=== PATIENT | female | born 1955 | race Caucasian/White ===

== ENCOUNTER 2019-03-10 11:21 | Emergency (ER) | payer OTHER, MEDICAID, SELFPAY ==
[2019-03-10 11:30] VITALS: BP 138/86; PULSE 64; RESP 18; TEMP 36.7; O2SAT 100
--- NOTE | 2019-03-10 12:10 | ED.GIBLEED ---
HPI - GI Bleed General Chief complaint: GI Bleed Stated complaint: blood in stool past colon cancer PT 7 yrs ago Time Seen by Provider: 03/10/19 11:42 Source: patient Mode of arrival: Ambulatory Limitations: no limitations History of Present Illness HPI Narrative: The patient is 63-year-old female with history of anal cancer 7 years ago she did with 40 for his rounds of radiation and chemotherapy presenting today with bright red blood per rectum. She says that she has had a few episodes over the past couple of weeks. She says it's just during the initial bowel movement. She denies any abdominal pain nausea or vomiting. She continues to smoke daily and drink alcohol. Related Data Allergies Allergy/AdvReac Type Severity Reaction Status Date / Time Iodinated Contrast Media Allergy Severe Anaphylaxis Verified 03/10/19 11:39 codeine Allergy Verified 03/10/19 11:39 oxycodone Allergy Verified 03/10/19 11:39 Review of Systems Review of Systems Narrative: GENERAL: Denies chills, fatigue, malaise, fever, sweats, travel HEENT: Denies sinus pain, ear pain, sore throat, difficulty swallowing, neck pain RESPIRATORY: Denies dyspnea, cough, wheezing, hemoptysis, sputum. CARDIOVASCULAR: Denies chest pain, palpitations, orthopnea, edema GASTROINTESTINAL: See HPI : Denies dysuria, frequency, incontinence, hematuria, urinary retention, flank pain. MUSCULOSKELETAL: Denies weakness, joint pain, or bony pain SKIN: No rash, no erythema, no pruritus NEUROLOGIC: Denies weakness, dizziness, headache, numbness, change in speech, confusion PSYCHIATRIC: No concerning psychosocial issues. 12 point review of systems is negative except for those stated above and HPI Patient History Medical History Rectal cancer (Acute) Social History Smoking Status: Current every day smoker Smoking Status: Current every day smoker alcohol intake frequency: 3 or more drinks per day Alcohol type: hard liquor Substance Use Type: does not use Exam Initial Vital Signs Initial Vital Signs: Vital Signs Temperature 98.1 F 03/10/19 11:30 Pulse Rate 64 03/10/19 11:30 Respiratory Rate 18 03/10/19 11:30 Blood Pressure 138/86 03/10/19 11:30 Pulse Oximetry 100 03/10/19 11:30 GENERAL: Well-appearing, well-nourished and in no acute distress. HEENT: Head atraumatic,EOMI, pupils reactive, face symmetric CARDIOVASCULAR: Regular rate and rhythm without murmurs, rubs or gallops. RESPIRATORY: Breath sounds equal bilaterally, no wheezes rales or rhonchi. ABDOMEN: Soft, nontender. Normoactive bowel sounds all 4 quadrants. No guarding or rebound. RECTAL: No gross blood no hemorrhoid patient did not tolerate exam very well. Sphincter was small : No CVA tenderness EXTREMITIES: Normal range of motion, no clubbing or edema. Neurovascularly intact NEUROLOGICAL: Alert and oriented x4.Normal gait and speech. Cranial nerves II through XII grossly intact. SKIN: Warm, dry, no laceration, no petechiae, no rashes or lesions. Course Orders Ordered: ED Orders 03/10/19 11:41 EKG-12 Lead Stat 03/10/19 11:57 Complete Blood Count AUTO DIFF Stat Comprehensive Metabolic Panel Stat Partial Thromboplastin Time Stat Prothrombin Time INR Stat Type and Screen Stat 03/10/19 12:09 CT abdomen pelvis w con Stat Discontinued Medications Diphenhydramine HCl (Benadryl) 25 mg IV NOW ONE Stop: 03/10/19 12:10 Last Admin: 03/10/19 13:56 Dose: 25 mg Documented by: ASHLEY Methylprednisolone (Solu-Medrol 125 Mg Vial) 125 mg IV NOW ONE Stop: 03/10/19 12:10 Last Admin: 03/10/19 13:56 Dose: 125 mg Documented by: ASHLEY Vital Signs Vital signs: Vital Signs - 8 hr 03/10/19 11:30 03/10/19 12:30 03/10/19 14:20 Temperature 98.1 F Pulse Rate 64 69 65 Respiratory Rate 18 Blood Pressure 138/86 Blood Pressure [Right Arm] 155/98 H 158/98 H Pulse Oximetry 100 100 100 03/10/19 15:54 Temperature Pulse Rate 68 Respiratory Rate 16 Blood Pressure 138/74 Blood Pressure [Right Arm] Pulse Oximetry 98 MDM - GI Bleed Lab Data Attestation: I reviewed the patient's lab results. Result diagrams: 03/10/19 11:57 03/10/19 11:57 Labs: Lab Results 03/10/19 03/10/19 03/10/19 Range/Units 11:57 11:57 11:57 WBC 5.6 (4.5-11.0) X10^3/uL RBC 5.12 (4.0-5.2) X10^6/uL Hgb 16.7 H (12.0-16.0) g/dL Hct 46.9 H (36-46) % MCV 91.6 (80-100) fL MCH 32.5 (26-34) PG MCHC 35.5 (30-36) % RDW 13.7 (11.6-14.8) % Plt Count 266 (150-400) X10^3/uL Neut % (Auto) 63.5 (50-75) % Lymph % (Auto) 25.3 (25-40) % [place] % (Auto) 7.9 (3-14) % Eos % (Auto) 2.4 (2-4) % Baso % (Auto) 0.9 (0-2) % Neut # (Auto) 3600 (7660-7475) /uL Lymph # (Auto) 1400 (8208-0066) /uL [place] # (Auto) 400 (0-900) /uL Eos # (Auto) 100 (0-450) /uL Baso # (Auto) 100 (0-100) /uL PT 10.8 (10.1-12.7) SECONDS INR 0.9 (0.9-1.3) APTT 34 (26.4-36.2) SECONDS Sodium 138 (137-145) mmol/L Potassium 4.8 (3.4-5.1) mmol/L Chloride 103 (98-107) mmol/L Carbon Dioxide 27 (22-32) mmol/L BUN 13 (7-17) mg/dL Creatinine 0.80 (0.52-1.04) mg/dL Estimated GFR > 60.0 (>60) mL/min BUN/Creatinine Ratio 16.3 (6-22) Glucose 104 (80-110) mg/dL Calcium 9.9 (8.4-10.2) mg/dL Total Bilirubin 0.8 (0.2-1.3) mg/dL AST 46 H (14-36) IU/L ALT 56 H (<35) IU/L Alkaline Phosphatase 86 (38-126) U/L Total Protein 8.1 (6.3-8.2) g/dL Albumin 4.8 (3.5-5.0) g/dL Globulin 3.3 (1.7-4.1) g/dL Albumin/Globulin Ratio 1.5 (1.0-2.8) Blood Type Antibody Screen 03/10/19 Range/Units 11:57 WBC (4.5-11.0) X10^3/uL RBC (4.0-5.2) X10^6/uL Hgb (12.0-16.0) g/dL Hct (36-46) % MCV (80-100) fL MCH (26-34) PG MCHC (30-36) % RDW (11.6-14.8) % Plt Count (150-400) X10^3/uL Neut % (Auto) (50-75) % Lymph % (Auto) (25-40) % [place] % (Auto) (3-14) % Eos % (Auto) (2-4) % Baso % (Auto) (0-2) % Neut # (Auto) (1479-6240) /uL Lymph # (Auto) (7933-4279) /uL [place] # (Auto) (0-900) /uL Eos # (Auto) (0-450) /uL Baso # (Auto) (0-100) /uL PT (10.1-12.7) SECONDS INR (0.9-1.3) APTT (26.4-36.2) SECONDS Sodium (137-145) mmol/L Potassium (3.4-5.1) mmol/L Chloride (98-107) mmol/L Carbon Dioxide (22-32) mmol/L BUN (7-17) mg/dL Creatinine (0.52-1.04) mg/dL Estimated GFR (>60) mL/min BUN/Creatinine Ratio (6-22) Glucose (80-110) mg/dL Calcium (8.4-10.2) mg/dL Total Bilirubin (0.2-1.3) mg/dL AST (14-36) IU/L ALT (<35) IU/L Alkaline Phosphatase (38-126) U/L Total Protein (6.3-8.2) g/dL Albumin (3.5-5.0) g/dL Globulin (1.7-4.1) g/dL Albumin/Globulin Ratio (1.0-2.8) Blood Type O Positive Antibody Screen Negative Urine Dip Bedside Urine Glucose Negative Bedside Urine Bilirubin - Negative Bedside Urine Ketone - Negative Urine Specific [place] 1.010 Bedside Urine Occult Blood - Negative Bedside Urine pH 6.0 Bedside Urine Protein - Negative Bedside Urine Urobilinogen - Negative Bedside Urine Nitrite - Negative Bedside Urine Leukocytes - Negative Esterase Imaging Data CT scan - abdomen/pelvis: Radiologist's Impression: PROCEDURE: CT ABDOMEN PELVIS W CON INDICATIONS: hx of rectal cancer now GI bleed TECHNIQUE: After the administration of intravenous contrast, 5 mm thick sections acquired from the diaphragm to the symphysis. 5 mm coronal and sagittal reformats were acquired. For radiation dose reduction, the following was used: automated exposure control, adjustment of mA and/or kV according to patient size. COMPARISON: None. FINDINGS: Image quality: Excellent. ABDOMEN: Lung bases: Lung bases are clear. Heart size is normal. Solid organs: Liver is normal in size and enhancement. Gallbladder appears normal except for presence of small and moderate sized calcified gallstones within the gallbladder lumen. Biliary system is non dilated. Pancreas enhances normally. Spleen is normal in size and enhancement. No adrenal nodules. Kidneys demonstrate normal size and enhancement, without hydronephrosis. Peritoneum and bowel: Bowel loops demonstrate normal wall thickness and caliber. No free fluid or air. Nodes and vessels: No retroperitoneal or mesenteric adenopathy by size criteria. Aorta and inferior vena cava are normal in size. Miscellaneous: No ventral hernias. PELVIS: Genitourinary: Bladder wall thickness is normal. Miscellaneous: No inguinal hernias or adenopathy. Bones: No suspicious bony lesions. No vertebral body compression fractures. IMPRESSION: Source of GI bleeding is not found. Incidental note is made of several small and moderate size gallstones layering dependently within the gallbladder lumen but without associated biliary obstruction or evidence of acute cholecystitis. Dictated by: Tyrell Daly M.D. on 03/10/2019 at 14:28 ECG Data Attestation: I personally reviewed and interpreted this ECG as follows: Prior ECG tracings: not available for review Interpretation: Normal sinus rhythm rate 63 p.r. interval 196 QRS [address] elevation depression or T-wave inversion of priors to compare MDM Narrative Medical decision making narrative: Patient shows no sign acute GI bleeding or recurrence at this time. She is hemodynamically stable on actually has elevated hemoglobin and hematocrit. However I do recommend colonoscopy. She states that she was told that she might not be able to ever have colonoscopy at again is due to the amount of radiation she has had. She was seen is in [place] but she doesn't know the doctor's and she is not sure of the facility. Have called and spoken with surgery Dr. Tate, who evaluates patient in the ED. At this time agrees with outpatient follow-up. Discharge Plan Departure Patient Disposition: Home Clinical Impression: Rectal bleeding Discharge Date/Time: 03/10/19 15:55 Instructions: Gastrointestinal Bleeding Activity Restrictions/Additional Instructions: *You have been diagnosed with rectal bleeding *What to do: It is recommended that you follow-up with GI and or surgery for possible colonoscopy. *Continue to take medications as directed *Follow up with your primary care provider in 2-3 days *Return to ER if you should have increasing bloody stools abdominal pain persistent vomiting or any new, worsening or concerning symptoms Referrals: Tara Tate MD [Physician] -
[2019-03-10 12:14] LABS: INR 0.9 (0.9-1.3); Prothrombin Time 10.8 SECONDS (10.1-12.7)
[2019-03-10 12:17] LABS: PTT Partial Thromboplastin Tim 34 SECONDS (26.4-36.2)
[2019-03-10 12:18] LABS: Alanine Aminotransferase 56 IU/L (<35); Albumin 4.8 g/dL (3.5-5.0); Albumin Globulin Ratio 1.5 (1.0-2.8); Alkaline Phosphatase 86 U/L (38-126); Aspartate Aminotransferase 46 IU/L (14-36); BUN Creatinine Ratio 16.3 (6-22); Bilirubin Total 0.8 mg/dL (0.2-1.3); Blood Urea Nitrogen 13 mg/dL (7-17); Calcium 9.9 mg/dL (8.4-10.2); Carbon Dioxide 27 mmol/L (22-32); Chloride 103 mmol/L (98-107); Estimated Glomerular Filt Rate > 60.0 mL/min (>60); Globulin 3.3 g/dL (1.7-4.1); Glucose 104 mg/dL (80-110); HEMOLYSIS < 15 (0-50); Potassium 4.8 mmol/L (3.4-5.1); Sodium 138 mmol/L (137-145); Total Protein 8.1 g/dL (6.3-8.2)
[2019-03-10 12:29] LABS: Add Manual Diff / Slide Review NO; Basophils Absolute Auto 100 /uL (0-100); Basophils Percent Auto 0.9 % (0-2); Eosinophils Absolute Auto 100 /uL (0-450); Eosinophils Percent Auto 2.4 % (2-4); Hematocrit 46.9 % (36-46); Hemoglobin 16.7 g/dL (12.0-16.0); Lymphocytes Absolute Auto 1400 /uL (1100-4500); Lymphocytes Percent Auto 25.3 % (25-40); Mean Corpuscular HGB Conc 35.5 % (30-36); Mean Corpuscular Hemoglobin 32.5 PG (26-34); Mean Corpuscular Volume 91.6 fL (80-100); Monocytes Absolute Auto 400 /uL (0-900); Monocytes Percent Auto 7.9 % (3-14); Neutrophils Absolute Auto 3600 /uL (1500-7000); Neutrophils Percent Auto 63.5 % (50-75); Platelet Count 266 X10^3/uL (150-400); Red Blood Cell Count 5.12 X10^6/uL (4.0-5.2); Red Cell Distribution Width 13.7 % (11.6-14.8); White Blood Cell Count 5.6 X10^3/uL (4.5-11.0)
[2019-03-10 12:30] VITALS: BP 155/98; PULSE 69; O2SAT 100
[2019-03-10] MEDS: methylPREDNISolone 125 MG/2 ML VIAL IV (13:56)
[2019-03-10] MEDS: diphenhydrAMINE 50 MG/ML VIAL 25 MG IV (13:56)
--- NOTE | 2019-03-10 14:01 | PC.NURSE ---
PO contrast started at 1230
[2019-03-10 14:20] VITALS: BP 158/98; PULSE 65; O2SAT 100
[2019-03-10 15:54] VITALS: BP 138/74; PULSE 68; RESP 16; O2SAT 98
--- NOTE | 2019-03-10 16:04 | P.CONS_ITS ---
History of Present Illness Consult details Date Patient Seen: 03/10/19 Time Patient Seen: 16:04 Chief complaint: blood in stool past colon cancer PT 7 yrs ago Reason for consult: rectal bleeding, history of anal cancer Requesting provider: Winnie Zambrano Narrative: This is a 63-year-old woman with h/o of anal cancer 7 years ago for which she was treated with radiation and chemotherapy without surgery. She says she last had a colonoscopy some time before the anal cancer treatment. She came into the ER today with c/o bright red blood per rectum. She says that she has had a few episodes over the past couple of weeks. She says it's just during the bowel movements. She says it is not as much blood as when she had her cancer. She denies significant rectal pain, although she refuses a rectal exam due to fear of pain. She denies any abdominal pain nausea or vomiting. She continues to smoke daily and drink alcohol. ROS: GENERAL: Denies chills, fatigue, malaise, fever, sweats, travel HEENT: Denies sinus pain, ear pain, sore throat, difficulty swallowing, neck pain RESPIRATORY: Denies dyspnea, cough, wheezing, hemoptysis, sputum. CARDIOVASCULAR: Denies chest pain, palpitations, orthopnea, edema GASTROINTESTINAL: See HPI : Denies dysuria, frequency, incontinence, hematuria, urinary retention, flank pain. MUSCULOSKELETAL: Denies weakness, joint pain, or bony pain SKIN: No rash, no erythema, no pruritus NEUROLOGIC: Denies weakness, dizziness, headache, numbness, change in speech, confusion PSYCHIATRIC: No concerning psychosocial issues. 12 point review of systems is negative except for those stated above and HPI PE: General: alert, comfortable, appears stated age, answers questions appropriately HEENT: conjunctiva pink, sclera white, no periorbital swelling. CARDIOVASCULAR: Regular rate. No pedal edema. RESPIRATORY: Non-tachypneic, breathing comfortably on room air. GASTROINTESTINAL: Abdomen soft and non-distended Perianal: No stool staining, no gross blood, no external hemorrhoids, no external lesions, no significant skin changes that would be indicative of radiation dermatitis GRISEL: Deferred per patient request GENITALURINARY: No flank tenderness. MUSCULOSKELETAL: Equal tone and mass bilaterally. SKIN: Warm, dry, soft, appropriate color for ethnicity. No other lesions, rashes, or wounds. NEURO: Alert and Oriented X 3. No gross sensory deficits, or cognitive issues. PSYCH: Appropriate affect and mood. Meds Home Medications and Allergies Allergies Allergy/AdvReac Type Severity Reaction Status Date / Time Iodinated Contrast Media Allergy Severe Anaphylaxis Verified 03/10/19 11:39 codeine Allergy Verified 03/10/19 11:39 oxycodone Allergy Verified 03/10/19 11:39 Exam Vital Signs (past 8 hours): - 03/10/19 11:30 03/10/19 12:30 03/10/19 14:20 Temperature 98.1 F Pulse Rate 64 69 65 Respiratory Rate 18 Blood Pressure 138/86 Blood Pressure [Right Arm] 155/98 H 158/98 H Pulse Oximetry 100 100 100 03/10/19 15:54 Temperature Pulse Rate 68 Respiratory Rate 16 Blood Pressure 138/74 Blood Pressure [Right Arm] Pulse Oximetry 98 Oxygen Delivery Method Room Air Objective Labs Result Diagrams: 03/10/19 11:57 03/10/19 11:57 Labs: Laboratory Results - last 24 hr 03/10/19 03/10/19 03/10/19 11:57 11:57 11:57 WBC 5.6 RBC 5.12 Hgb 16.7 H Hct 46.9 H MCV 91.6 MCH 32.5 MCHC 35.5 RDW 13.7 Plt Count 266 Neut % (Auto) 63.5 Lymph % (Auto) 25.3 [place] % (Auto) 7.9 Eos % (Auto) 2.4 Baso % (Auto) 0.9 Neut # (Auto) 3600 Lymph # (Auto) 1400 [place] # (Auto) 400 Eos # (Auto) 100 Baso # (Auto) 100 PT 10.8 INR 0.9 APTT 34 Sodium 138 Potassium 4.8 Chloride 103 Carbon Dioxide 27 BUN 13 Creatinine 0.80 Estimated GFR > 60.0 BUN/Creatinine Ratio 16.3 Glucose 104 Calcium 9.9 Total Bilirubin 0.8 AST 46 H ALT 56 H Alkaline Phosphatase 86 Total Protein 8.1 Albumin 4.8 Globulin 3.3 Albumin/Globulin Ratio 1.5 Blood Type Antibody Screen 03/10/19 11:57 WBC RBC Hgb Hct MCV MCH MCHC RDW Plt Count Neut % (Auto) Lymph % (Auto) [place] % (Auto) Eos % (Auto) Baso % (Auto) Neut # (Auto) Lymph # (Auto) [place] # (Auto) Eos # (Auto) Baso # (Auto) PT INR APTT Sodium Potassium Chloride Carbon Dioxide BUN Creatinine Estimated GFR BUN/Creatinine Ratio Glucose Calcium Total Bilirubin AST ALT Alkaline Phosphatase Total Protein Albumin Globulin Albumin/Globulin Ratio Blood Type O Positive Antibody Screen Negative Assessment & Plan Assessment and plan (1) Rectal bleeding: Current visit: No Status: Acute (2) History of anal cancer: Current visit: No Status: Acute Assessment & Plan narrative: This is a 63 yo woman with 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 She was told five years after treatment that she was cleared from the cancer. For the last few months she has had blood in the stool and she is concerned that this may be recurrent cancer vs some other cause of bleeding. Her hgb is 16.7 and her bleeding is minimal. She would like to follow up in the office for a full exam. Plan: Contact [facility] to schedule an appointment. Get outside records from PCP and prior cancer treatment Time Spent With Patient Time with patient: 25 - 35 minutes
== END 2019-03-10 15:55 | disposition home or self-care (01) ==
PROVIDERS: Emergency Provider Emergency Medicine
DX: K62.5 Hemorrhage of anus and rectum (principal); Z85.048 Personal history of other malignant neoplasm of rectum, rectosigmoid junction, and anus
CPT/HCPCS: 36415; 74177; 80053; 81003; 85025; 85610; 85730; 86850; 86900; 86901; 93005; 96374; 96375; 99284; 99285; J1200; J2930; Q9967

== ENCOUNTER 2019-10-27 11:38 | Emergency (ER) | payer OTHER, MEDICAID, SELFPAY ==
[2019-10-27 11:50] VITALS: BP 144/87; PULSE 60; RESP 18; TEMP 36.5; O2SAT 99; BMI 25.9
--- NOTE | 2019-10-27 12:02 | ED_ITS ---
HPI - Skin/Abscess/Foreign Bdy <ANDREW Barry - Last Filed: 10/27/19 15:45> General Chief complaint: Skin/Abscess/Foreign Body Stated complaint: ulcer on labia Time Seen by Provider: 10/27/19 11:53 Source: patient Mode of arrival: Ambulatory Limitations: no limitations History of Present Illness HPI narrative: 63yo female presents to the ED for a painful labia with an ulceration. Patient noticed that she felt some soreness while wiping over the past few days. She states she looked at the area today and noticed some redness with an ulceration. Patient states the area does itch. She denies any burning with urination or vaginal discharge. She states she has not had any sexual encounters for the past 15 years. 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 She has never been known to have any outbreaks of herpes. Patient denies any other symptoms such as fevers, chills, dizziness, abdominal pain, nausea, vomiting, diarrhea,. Related Data Home Medications Medication Instructions Recorded Confirmed alprazolam 0.5 mg tablet 0.5 mg PO BEDTIME PRN 04/13/19 04/13/19 aspirin 81 mg tablet,delayed 81 mg PO DAILY 04/13/19 04/13/19 release Previous Rx's Medication Instructions Recorded clotrimazole 1 applicator VAG BEDTIME 7 Days 10/27/19 #45 gram valacyclovir 1,000 mg PO BID 7 Days #14 tab 10/27/19 Allergies Allergy/AdvReac Type Severity Reaction Status Date / Time Iodinated Contrast Media Allergy Severe Anaphylaxis Verified 10/27/19 11:50 codeine Allergy Verified 10/27/19 11:50 Opioids - Morphine Analogues Allergy Verified 10/27/19 11:50 oxycodone Allergy Verified 10/27/19 11:50 Review of Systems <ANDREW Barry - Last Filed: 10/27/19 15:45> Review of Systems Narrative: REVIEW OF SYSTEMS: GENERAL: Denies fever. HENT: No head trauma. CARDIOVASCULAR: No chest pain. RESPIRATORY: No shortness of breath or cough. GASTROINTESTINAL: No nausea, vomiting, diarrhea, or constipation. GENITOURINARY: No flank pain or dysuria. Complains of painful labia in the lesion on labia, see HPI. MUSCULOSKELETAL: No pain. INTEGUMENTARY: Reports lesion on labia, see HPI. NEURO: No numbness or tingling. PSYCH: No behavior or mood changes. Patient History <ANDREW Barry - Last Filed: 10/27/19 15:45> Medical History Pelvic irradiation (Acute) Squamous cell carcinoma of anus (Inactive) Social History Smoking Status: Current every day smoker Smoking Status: Current every day smoker alcohol intake frequency: 3 or more drinks per day Alcohol type: hard liquor Substance Use Type: marijuana Exam <ANDREW Barry - Last Filed: 10/27/19 15:45> Initial Vital Signs Initial Vital Signs: Vital Signs Temperature 97.7 F 10/27/19 11:50 Pulse Rate 60 10/27/19 11:50 Respiratory Rate 18 10/27/19 11:50 Blood Pressure 144/87 H 10/27/19 11:50 Pulse Oximetry 99 10/27/19 11:50 PHYSICAL EXAMINATION: GENERAL: Well groomed, alert, and cooperative. Answers questions promptly and appropriately. Vital signs noted. HENT: Normocephalic, atraumatic. EYES: Conjunctiva pink, sclera white, no periorbital swelling. CHEST: Normal to inspection and without deformities. CARDIOVASCULAR: Regular rate. RESPIRATORY: Normal respiratory rate, trachea midline, airway patent. No stridor, nasal flaring or accessory muscle use. GASTROINTESTINAL: Bowel sounds normoactive. Abdomen is soft and non-tender. No organomegaly. : Dental exam performed with ED PHYSICIANS at bedside. Erythema noted to inner labia, small white lesion right labia, area swabs, tenderness with swabbing. No discharge. MUSCULOSKELETAL: Normal gait and coordination. Equal tone and mass bilaterally. EXTREMITIES: CMS intact. Moves all extremities. SKIN: Warm, dry, soft, appropriate color for ethnicity. No lesions, rashes, or wounds. NEURO: Alert and Oriented X 3. Good coordination. No ataxia, or sensory deficits, or cognitive issues. PSYCH: Appropriate affect and mood. <López Dobbs MD - Last Filed: 10/27/19 16:46> Initial Vital Signs Initial Vital Signs: Vital Signs Temperature 97.7 F 10/27/19 11:50 Pulse Rate 60 10/27/19 11:50 Respiratory Rate 18 10/27/19 11:50 Blood Pressure 144/87 H 10/27/19 11:50 Pulse Oximetry 99 10/27/19 11:50 Course <ANDREW Barry - Last Filed: 10/27/19 15:45> Course Course Narrative: Swab sent to lab. Orders Ordered: ED Orders 10/27/19 12:15 Wound Culture and Gram Stain Stat Vital Signs Vital signs: Vital Signs - 8 hr 10/27/19 11:50 Temperature 97.7 F Pulse Rate 60 Respiratory Rate 18 Blood Pressure 144/87 H Pulse Oximetry 99 <López Dobbs MD - Last Filed: 10/27/19 16:46> Orders Ordered: ED Orders 10/27/19 12:15 Wound Culture and Gram Stain Stat Vital Signs Vital signs: Vital Signs - 8 hr 10/27/19 11:50 Temperature 97.7 F Pulse Rate 60 Respiratory Rate 18 Blood Pressure 144/87 H Pulse Oximetry 99 MDM - Skin/Abscess/Foreign Bdy <ANDREW Barry - Last Filed: 10/27/19 15:45> Medical Records Attestation: I reviewed the patient's medical records. Lab Data Attestation: I reviewed the patient's lab results. Labs: Urine Dip Bedside Urine Glucose Negative Bedside Urine Bilirubin - Negative Bedside Urine Ketone - Negative Urine Specific [place] 1.015 Bedside Urine Occult Blood - Negative Bedside Urine pH 6.0 Bedside Urine Protein - Negative Bedside Urine Urobilinogen - Negative Bedside Urine Nitrite - Negative Bedside Urine Leukocytes - Negative Esterase MDM Narrative Medical decision making narrative: History and examination concerning for herpes versus [place] vaginitis versus estrogen deficiency vaginitis versus cancer etiology given history of anal squamous cell carcinoma. Patient was started on the valacyclovir, swabs were sent to lab for confirmation. She was encouraged to follow up with OBGYN for further examination and evaluation. Patient's POC urine was negative for any leukocytes, blood, or nitrates. Declined testing for other STDs, patient is low risk for other STDs. Return precautions given for new or worsening symptoms. Patient agreed to plan of care verbalized understanding. <López Dobbs MD - Last Filed: 10/27/19 16:46> Lab Data Labs: Urine Dip Bedside Urine Glucose Negative Bedside Urine Bilirubin - Negative Bedside Urine Ketone - Negative Urine Specific [place] 1.015 Bedside Urine Occult Blood - Negative Bedside Urine pH 6.0 Bedside Urine Protein - Negative Bedside Urine Urobilinogen - Negative Bedside Urine Nitrite - Negative Bedside Urine Leukocytes - Negative Esterase Discharge Plan Departure Patient Disposition: Home Clinical Impression: Pain in urethra Discharge Date/Time: 10/27/19 12:37 Instructions: Genital Herpes Activity Restrictions/Additional Instructions: Thank you for entrusting me with your care today. As discussed, viral and culture swabs were sent to lab. We should receive these results and approximately 2 days. Due to her symptoms, there is some concern that the irritation may be herpes or general irritation as which is some times caused by hormone fluctuations. I prescribed you a cream and an antiviral pill, please take these as directed. Your prescriptions were sent to [facility] in [place]. However, it is very important that you follow-up with a filtration plant mechanic, I referred you to one below. Please give them a call and make an appointment in the next few weeks. Prescriptions: New valacyclovir 1 gram tablet 1,000 mg PO BID 7 Days Qty: 14 RF: 0 clotrimazole 1 % cream 1 applicator VAG BEDTIME 7 Days Qty: 45 RF: 0 No Action aspirin [Adult Low Dose Aspirin] 81 mg tablet,delayed release (DR/EC) 81 mg PO DAILY RF: 0 alprazolam [Xanax] 0.5 mg tablet 0.5 mg PO BEDTIME PRNRF: 0 Referrals: Rosa Morgan MD [Physician] - Luca Olvera MD [Primary Care Provider] - <López Dobbs MD - Last Filed: 10/27/19 16:46> Cosign ED Attending Cosignature Attestation: I was immediately available in the department for consultation. This documentation has been reviewed and I agree with assessment and plan. Supervised by López Dobbs MD
--- NOTE | 2019-10-27 12:36 | PC.NURSE ---
defer assessment to provider
--- NOTE | 2019-11-01 16:14 | PC.NURSE ---
Pt called to ask about test results. Pt is now aware that results are still pending and a nurse will call with them as soon as the results come back
--- NOTE | 2019-11-05 08:56 | PC.NURSE ---
received a call from patient asking about micro results. Discussed results with patient. Patient refered to PCP for further evaluation. Pt stated she will follow up with Dr Olvera.
== END 2019-10-27 12:37 | disposition home or self-care (01) ==
PROVIDERS: Emergency Provider Nurse Practitioner; PCP Family Medicine
DX: R39.89 Other symptoms and signs involving the genitourinary system (principal); N90.89 Other specified noninflammatory disorders of vulva and perineum
CPT/HCPCS: 81003; 87070; 87075; 87205; 87252; 99282

== ENCOUNTER → 2022-10-08 13:35 | Outpatient (CLI) | payer OTHER, SELFPAY ==
--- NOTE | 2022-10-08 | DI.ECHO.S_ITS ---
[place] +---------+ [facility] +---------+ : : [address] : : : : [id number] : : : : Phone: [phone]---------+ Echocardiogram Report + + :Name: BEKA KEARNS Study Date: 10/08/2022 Height: 65 in : :[facility] ReadingLocation: Weight: 150 lb : : Gender: Female BSA: 1.8 m2 : :: 1955 Age: 66 yrs BP: 140/93 mmHg: :Reason For Study: Chronic Heart Murmur : :Ordering Physician: FAYE, : :DEBBIE Performed By: Johanny Florez : :Referring: DEBBIE MCKINNEY : + + Interpretation Summary The ejection fraction is estimated to be 60-65%. There is mild mitral regurgitation. There is trace aortic regurgitation. There is trace tricuspid regurgitation. Procedure: A two-dimensional transthoracic echocardiogram with color flow and Doppler was performed. The study quality was technically adequate. There is no prior echocardiogram noted for this patient. The patient was in normal sinus rhythm during the exam. Left Ventricle: The left ventricle is normal in size. The ejection fraction is estimated to be 60-65%. Left ventricular wall motion is normal. Diastolic parameters suggest a relaxation abnormality of the left ventricle, consistent with probable normal filling pressures. Right Ventricle: The right ventricle is normal in size and function. Atria: The left atrial size is normal. Right atrial size is normal. There is no Doppler evidence for an interatrial shunt. Mitral Valve: The mitral valve leaflets appear moderately thickened, but open well. There is no mitral valve stenosis. There is mild mitral regurgitation. Aortic Valve: The aortic valve is trileaflet. The aortic valve opens well. There is no aortic valve stenosis. There is trace aortic regurgitation. Tricuspid Valve: The tricuspid valve is normal. There is no tricuspid stenosis. There is trace tricuspid regurgitation. The right ventricular systolic pressure is estimated to be at least 16 mmHg based on an estimated right atrial pressure of 3 mm Hg. Pulmonic Valve: The pulmonic valve is not well visualized. There is no pulmonic valvular stenosis. There is no pulmonic valvular regurgitation. Great Vessels: The aortic root is normal size. The ascending aorta is normal in size. The pulmonary artery is normal size. The IVC is of normal diameter and collapses greater than 50% with a sniff. This suggests a low right atrial pressure of 3 mm Hg. Pericardium/ Pleura There is no pericardial effusion. There is no pleural effusion. MMode/2D Measurements & Calculations LVIDd: 4.6 cm LVOT diam: 2.1 cm LVIDs: 1.9 cm Ao root diam: 3.0 cm FS: 58.7 % asc Aorta Diam: 3.0 cm IVSd: 0.90 cm LVPWd: 0.90 cm LV bernal. diameter/BSA (cm/m^2): 2.6 LV sys. diameter/BSA (cm/m^2): 1.1 LA A2 area: 15.2 cm2 RA long axis: 4.6 cm LA A4 area: 11.3 cm2 RA area: 11.9 cm2 LA length (vol): 4.7 cm RA vol: 26.1 ml LA vol: 30.8 ml RA : 14.9 ml/m2 LA vol index: 17.6 ml/m2 RVD1 (basal): 3.4 cm LVLs ap4: 6.0 cm LVLd ap2: 6.7 cm LVLs ap2: 6.0 cm Doppler Measurements & Calculations Ao V2 max: 161.0 cm/sec LVOT Max Dmitry: 144.7 cm/sec Ao V2 mean: 107.3 cm/sec LV V1 max P.4 mmHg Ao max P.0 mmHg LV V1 VTI: 31.0 cm Ao mean P.3 mmHg EV(I,D): 3.0 cm2 Ao V2 VTI: 35.4 cm EV(V,D): 3.1 cm2 sev ratio: 0.88 EV indexed to BSA (cm^2/m^2): 1.7 MV E max dmitry: 74.7 cm/sec TR max dmitry: 182.0 cm/sec MV A max dmitry: 81.9 cm/sec TR max P.2 mmHg MV E/A: 0.91 PA V2 max: 70.9 cm/sec Med Peak E' Dmitry: 4.9 cm/sec PA V2 mean: 48.8 cm/sec E/E' med: 15.2 PA mean P.0 mmHg Lat Peak E' Dmitry: 5.2 cm/sec PA pr(Accel): -6.5 mmHg E/E' lat: 14.4 E/e' average: 14.8 MV dec time: 0.20 sec SV(LVOT): 107.5 ml AV VR_phl: 0.90 EV(VTI)/BSA_phl: 1.7 Reading Physician:12:57 PM
--- NOTE | 2022-10-08 | DI.MG.S_ITS ---
BILATERAL DIGITAL SCREENING MAMMOGRAM 3D/2D WITH CAD: 10/08/2022 CLINICAL: Routine screening. Family history of breast cancer. Comparison is made to exams dated: 06/27/2020 mammogram - [facility], 05/02/2019 mammogram, 07/03/2007 mammogram - [facility], and 07/22/2020 mammogram - [facility]. Both breasts are heterogeneously dense, which may obscure small masses (category c / 51-75% glandular tissue). Current study was also evaluated with a Computer Aided Detection (CAD) system. No significant masses, calcifications, or other findings are seen in either breast. There has been no significant interval change. IMPRESSION: NEGATIVE There is no mammographic evidence of malignancy. A 1 year screening mammogram is recommended. Based on the Tyrer Cuzick model (a risk assessment model) the patient's lifetime risk is 11.4% and her 10 year risk is 6.1%. According to the ACR, ACS, and NCCN guidelines, an annual breast MRI exam along with mammogram is recommended if the patient's lifetime risk is 20% or greater. This exam was interpreted at Station ID: [id number]. NOTE: For mammograms, a report in lay terms will be sent to the patient. Approximately 15% of breast malignancies will not be visualized mammographically. In the management of a palpable breast mass, a negative mammogram must not discourage biopsy of a clinically suspicious lesion. Electronically Signed By: Fabián pulido/caleb:10/08/2022 15:41:41 letter sent: Normal Exam ACR BI-RADS Category 1: Negative [id number]
== END ==
PROVIDERS: PCP Family Medicine; Referring Provider Internal Medicine; Visit Provider Internal Medicine
DX: Z12.31 Encounter for screening mammogram for malignant neoplasm of breast (principal); Z80.3 Family history of malignant neoplasm of breast; I34.0 Nonrheumatic mitral (valve) insufficiency
CPT/HCPCS: 77063; 77067; 93306

== ENCOUNTER → 2023-03-14 11:04 | Outpatient (CLI) | payer OTHER, SELFPAY ==
--- NOTE | 2023-03-14 11:06 | DI.US.S_ITS ---
PROCEDURE: US THYROID INDICATIONS: NONTOXIC SINGLE THYROID NODULE TECHNIQUE: Real-time scanning was performed of the thyroid gland, with image documentation. COMPARISON: [facility], , US THYROID, 05/14/2021, 11:37. FINDINGS: Right: Thyroid lobe measures 4.3 x 1.7 x 1.3 cm, and is homogeneous in echotexture. Left: Thyroid lobe measures 4.0 x 1.1 x 1.1 cm, and is homogenous in echotexture. Isthmus: 0.2 cm thick. Benign 0.6 cm cyst again seen in the right thyroid (labeled as nodule #1 on the current exam). Nodule number: 2 (please note that this nodule was previously labeled as #1 on the ultrasound from 05/14/2021) Location: Left superior anterior Size: Unchanged at 0.7 x 0.5 x 0.3 cm. Composition: Solid Echogenicity: Isoechoic to hypoechoic Shape: wider than tall. Margins: Smooth Echogenic foci: Punctate Total points: 7 ACR TI-RADS category: Highly suspicious Previously seen left superior posterior nodule (nodule #2 on the ultrasound from 05/14/2021) is not visualized on the current exam. Nodule number: 3 Location: Left mid Size: 2.0 by 1.1 x 1.0 cm (previously 2.2 x 1.6 x 1.0 cm) Composition: Solid Echogenicity: Isoechoic Shape: wider than tall. Margins: Smooth Echogenic foci: None Total points: 3 ACR TI-RADS category: Mildly suspicious IMPRESSION: Thyroid nodules as above. Recommend continued imaging follow-up based on guidelines provided below. ACR TI-RADS definitions and recommendations: TI-RADS 1 (benign): 0 points. FNA not needed. TI-RADS 2 (not suspicious): 2 points. FNA not needed. TI-RADS 3 (mildly suspicious): 3 points. * FNA if 2.5 cm or larger, follow up if 1.5 cm or larger (at 1, 3, and 5 years). TI-RADS 4 (moderately suspicious): 4-6 points. * FNA if 1.5 cm or larger, follow up if 1 cm or larger (at 1, 2, 3, and 5 years). TI-RADS 5 (highly suspicious): 7 points or more. * FNA if 1 cm or larger, follow up if 0.5 cm or larger (every year for 5 years). Approved by: Luke Borja M.D. on 03/15/2023 at 16:01
== END ==
LOC: US 11:05
PROVIDERS: PCP Family Medicine; Referring Provider Internal Medicine; Visit Provider Internal Medicine
DX: E04.2 Nontoxic multinodular goiter (principal)
CPT/HCPCS: 76536

== ENCOUNTER → 2023-09-20 09:44 | Outpatient (CLI) | payer MEDICARE, SELFPAY ==
--- NOTE | 2023-09-20 | DI.CT.S_ITS ---
PROCEDURE: CT CHEST W CON INDICATIONS: LUNG MASS, RIGHT UPPER LOBE 19MM TECHNIQUE: After the administration of intravenous contrast, 5 mm thick sections acquired from the pulmonary apices to the posterior costophrenic angles. 1 mm axial lung, 5 mm thick coronal and sagittal reformats and 7 mm axial MIP were acquired. For radiation dose reduction, the following was used: automated exposure control, adjustment of mA and/or kV according to patient size. COMPARISON: None. FINDINGS: Image quality: Diagnostic. Lower Neck: No enlarged lymph nodes. Thyroid: No thyroid nodules which require sonographic follow up, per consensus guidelines. Axillae: No enlarged lymph nodes. Chest Wall: Unremarkable. Bones: Unremarkable. Lungs and Pleura: No pneumothorax or pleural effusions. Spiculated mass measuring 2.1 x 1.4 cm on series 3, image 99 in the posterior aspect the right upper lobe. No prior exams are available for comparison despite indication noting upper lobe mass. Heart: Heart size is normal. No pericardial effusion. Thoracic Vessels: The aorta and pulmonary arteries demonstrate normal size. Mediastinum and Esther: No enlarged lymph nodes. Esophagus: No wall thickening. No hiatal hernia. Upper Abdomen: Visualized upper abdomen solid organs and bowel loops appear normal. IMPRESSION: Spiculated right upper lobe mass concerning for malignancy. Although indications suggest prior exams exist, they are not currently available for comparison. Further evaluation with PET and/or biopsy is recommended. Dictated by: Liliana Srivastava M.D. on 09/20/2023 at 12:38 Approved by: Liliana Srivastava M.D. on 09/20/2023 at 12:43
[2023-09-20 10:15] LABS: Estimated Glomerular Filt Rate > 60 mL/min (>60)
== END ==
PROVIDERS: Radiology Diagnostic Radiology; PCP Internal Medicine; Referring Provider Nurse Practitioner; Visit Provider Nurse Practitioner
DX: R91.8 Other nonspecific abnormal finding of lung field (principal)
CPT/HCPCS: 36415; 71260; 82565; Q9967

== ENCOUNTER → 2023-10-11 08:17 | Outpatient (CLI) | payer MEDICARE, SELFPAY | PROVIDERS: PCP Internal Medicine; Referring Provider Thoracic Surgery (Cardiothoracic Vascular Surgery); Visit Provider Thoracic Surgery (Cardiothoracic Vascular Surgery) | DX: R91.1 Solitary pulmonary nodule (principal); F17.210 Nicotine dependence, cigarettes, uncomplicated; R94.2 Abnormal results of pulmonary function studies | CPT/HCPCS: 94060; 94726; 94729 ==

== ENCOUNTER → 2024-03-15 | Outpatient (CLI) | payer MEDICARE, SELFPAY ==
--- NOTE | 2024-03-15 | DI.MG.S_ITS ---
BILATERAL DIGITAL SCREENING MAMMOGRAM 3D/2D WITH CAD: 03/15/2024 CLINICAL: Routine screening. Family history of breast cancer. Comparison is made to exams dated: 10/08/2022 mammogram - [facility], 06/27/2020 mammogram - [facility], and 05/02/2019 mammogram. The breasts are heterogeneously dense, which may obscure small masses (category c / 51-75% glandular tissue). Current study was also evaluated with a Computer Aided Detection (CAD) system. No significant masses, calcifications, or other findings are seen in either breast. There has been no significant interval change. IMPRESSION: NEGATIVE There is no mammographic evidence of malignancy. A 1 year screening mammogram is recommended. Based on the Tyrer Cuzick model (a risk assessment model) the patient's lifetime risk is 10.2% and her 10 year risk is 6.1%. According to the ACR, ACS, and NCCN guidelines, an annual breast MRI exam along with mammogram is recommended if the patient's lifetime risk is 20% or greater. This exam was interpreted at Station ID: [id number]. NOTE: For mammograms, a report in lay terms will be sent to the patient. Approximately 15% of breast malignancies will not be visualized mammographically. In the management of a palpable breast mass, a negative mammogram must not discourage biopsy of a clinically suspicious lesion. Electronically Signed By: Jaxson kaplan/caleb:03/15/2024 16:17:39 letter sent: Normal Exam ACR BI-RADS Category 1: Negative
== END ==
PROVIDERS: PCP Internal Medicine; Referring Provider Internal Medicine; Visit Provider Internal Medicine
DX: Z12.31 Encounter for screening mammogram for malignant neoplasm of breast (principal); Z80.3 Family history of malignant neoplasm of breast; R92.333 Mammographic heterogeneous density, bilateral breasts
CPT/HCPCS: 77063; 77067